=== PATIENT | female | born 1990 | race Hispanic/Latino ===

== ENCOUNTER 2018-05-05 22:58 | Inpatient (IN) | payer BC, MEDICAID ==
[2018-05-06] MEDS ORDERED: STADOL IV PRN (01:18)
[2018-05-06] MEDS: LACTATED RINGERS 1,000 ML IV SCH ×3 (02:16→05:24)
[2018-05-06 02:24] LABS: Hematocrit 39.9 % (30.3-42.9); Hemoglobin 13.7 gm/dl (10.1-14.3); Mean Corpuscular HGB Conc 34 % (30-34); Mean Corpuscular Volume 94 fl (79-97); Red Blood Count 4.23 M/mm3 (3.65-5.03); Red Cell Distribution Width 13.8 % (13.2-15.2)
[2018-05-06 02:26] LABS: Platelet Count 122 K/mm3 (140-440)
[2018-05-06] MEDS ORDERED: NARCAN 2 MG/2 ML IV PRN (03:00)
[2018-05-06] MEDS ORDERED: fentaNYL-BUPIV 2 MCG/ML-0.125% 200 MCG/100 ML BAG EPIDURAL SCH (03:00)
[2018-05-06] MEDS ORDERED: SUBLIMAZE ONE (03:06)
[2018-05-06] MEDS ORDERED: SENSORCAINE/DEXTR 0.75-8.25% INFILTRATI ONE (03:06)
[2018-05-06] MEDS ORDERED: PITOCin/NS 20 UNIT/1000ML DRIP 20,000 MILLIUNITS/1,000 ML BAG IV ONE (07:02)
--- NOTE | 2018-05-06 08:12 | History and Physical Report ---
History of Present Illness Date of examination: 05/06/18 Date of admission: 05/06/18 01:01 Chief complaint: My water broke History of present illness: Pt is a 27 year old who presents with SROM at 38.5 weeks and EDC 05/14/2018. Pt's course has been complicated by depression, but no other issues. She is GBS negative. Past History Past Medical History: no pertinent history Past Surgical History: no surgical history - Obstetrical History Expected Date of Delivery: 05/14/18 Actual Gestation: 38 Week(s) 6 Day(s) : 2 Medications and Allergies Allergies Allergy/AdvReac Type Severity Reaction Status Date / Time No Known Allergies Allergy Unverified 01/08/18 15:52 Home Medications Medication Instructions Recorded Confirmed Last Taken Type Pnv Plus Multivit Tab 65 mg PO DAILY 05/06/18 05/06/18 05/05/18 08:00 History Active Meds: Active Medications Butorphanol Tartrate (Stadol) 2 mg IV Q2H PRN PRN Reason: Labor Pain Last Admin: 05/06/18 02:05 Dose: 2 mg Documented by: Ephedrine Sulfate (Ephedrine Sulfate) 10 mg IV Q2M PRN PRN Reason: Hypotension Lactated Ringer's (Lactated Ringers) 1,000 mls @ 125 mls/hr IV DIRECT SARA Last Admin: 05/06/18 05:24 Dose: 125 mls/hr Documented by: Fentanyl/Bupivacaine/Sodium Chlor (Fentanyl-Bupiv 2 Mcg/Ml-0.125%) 200 mcg in 100 mls @ 12 mls/hr EPIDURAL TITR SARA; Protocol Last Admin: 05/06/18 03:52 Dose: 12 mls/hr Documented by: Naloxone HCl (Narcan 2 Mg/2 Ml) 0.2 mg IV Q5M PRN PRN Reason: Respiratory sedation - Vital Signs Vital signs: Vital Signs Pulse BP 71 111/63 01/08/18 15:48 01/08/18 15:48 Temp Pulse Resp BP Pulse Ox 97.5 F L 97 H 16 131/75 97 05/06/18 07:12 05/06/18 07:36 05/06/18 07:12 05/06/18 07:24 05/06/18 07:36 - Physical Exam Breasts: Cardiovascular: Regular rate, Normal S1, Normal S2 Lungs: Positive: Clear to auscultation, Normal air movement Abdomen: Positive: normal appearance, soft, normal bowel sounds. Negative: distention, tenderness Vulva: both: normal Vagina: Positive: normal moisture. Negative: discharge Cervix: Negative: lesion, discharge Uterus: Positive: normal size, normal contour Adnexa: both: normal Anus/Rectum: Positive: normal perianal skin, heme negative. Negative: rectal mass, hemorrhoids Extremities: Deep Tendon Reflex Grade: Normal +2 - Obstetrical Cervical Dilatation: 5 Cervical Effacement Percentage: 70 station: -3 Uterine Contraction Pattern: Regular Uterine Contraction Intensity: Moderate Results Result Diagrams: 05/06/18 02:00 Abnormal lab results 05/06/18 Range/Units 02:00 WBC 12.2 H (4.5-11.0) K/mm3 Plt Count 122 L (140-440) K/mm3 All other labs normal. Assessment and Plan IUP at 38.5 weeks with srom. Admit for labor. Augment if needed. Epidural when desired. Anticipate .
--- NOTE | 2018-05-06 08:13 | Procedure Note ---
OB Delivery Note - Delivery Date of Delivery: 05/06/18 Surgeon: FAYE MAGAÑA Estimated blood loss: 200cc - Vaginal Delivery presentation: vertex Delivery position: OP Intrapartum events: PROM->1hr before delivery Delivery induction: none Delivery monitor: external FHT, external uterine Route of delivery: Delivery placenta: spontaneous Delivery cord: nuchal cord, 3 umbilical vessels Episiotomy: none Delivery laceration: 2nd degree Delivery repair: vicryl - Infant A at 1 minute: 9 at 5 minutes: 9 Gender: Female (8 pounds 6 ounces 3808 grams)
[2018-05-06] MEDS ORDERED: METHERGINE IM ONE ×2 (08:45→10:07)
[2018-05-06] MEDS ORDERED: PITOCin/NS 20 UNIT/1000ML DRIP 20 UNITS/1,000 ML BAG IV SCH (09:00)
[2018-05-06] MEDS ORDERED: LANSINOH TP PRN (09:43)
[2018-05-06] MEDS ORDERED: PHENERGAN PO PRN (09:43)
[2018-05-06] MEDS ORDERED: TUCKS PAD TP PRN (09:43)
[2018-05-06] MEDS ORDERED: BENADRYL PO PRN (09:43)
[2018-05-06] MEDS ORDERED: ZOFRAN IV PRN (09:43)
[2018-05-06] MEDS ORDERED: TYLENOL PO PRN (09:43)
[2018-05-06] MEDS ORDERED: SODIUM CHLORIDE FLUSH SYRINGE 10 ML IV SCH (09:43)
[2018-05-06] MEDS ORDERED: PRENATAL VITAMIN PO SCH (10:00)
[2018-05-06] MEDS ORDERED: DULCOLAX PR PRN (11:00)
[2018-05-06] MEDS: IBUPROFEN PO SCH ×2 (12:40→18:12)
[2018-05-06] MEDS: NORCO 5/325 PO PRN ×2 (12:40→20:35)
[2018-05-06 20:57] LABS: Hematocrit 31.5 % (30.3-42.9); Hemoglobin 10.7 gm/dl (10.1-14.3)
[2018-05-06] MEDS ORDERED: MILK OF MAGNESIA PO PRN (22:00)
[2018-05-07] MEDS: IBUPROFEN PO SCH ×2 (02:07→09:50)
[2018-05-07] MEDS: COLACE PO SCH ×2 (02:07→09:47)
--- NOTE | 2018-05-07 12:01 | Progress Note ---
Assessment and Plan PPD 1 s/p . Doing well. Plan for discharge home on today. Subjective - Subjective Date of service: 05/07/18 Interval history: Pt is a 27 year old who presents with SROM at 38.5 weeks and EDC 05/14/2018. Pt's course has been complicated by depression, but no other issues. She is GBS negative. Patient reports: appetite normal, voiding normally, pain well controlled, ambulating normally [place]: doing well Objective - Vital Signs Latest vital signs: Vital Signs Temp Pulse Resp BP BP Pulse Ox 05/07/18 08:09 98.7 F 80 18 107/71 95 05/07/18 00:00 98.2 F 58 L 20 119/61 97 05/06/18 23:56 76 95 05/06/18 23:53 59 L 98 05/06/18 20:10 87 137/75 98 05/06/18 20:00 98.2 F 84 20 126/77 96 05/06/18 17:02 98.6 F 73 24 123/70 96 05/06/18 12:26 97.9 F 67 20 121/76 97 Intake and Output 05/06/18 05/07/18 05/07/18 22:59 06:59 14:59 Intake Total 120 240 360 Output Total 600 Balance -480 240 360 Intake: Oral 120 240 Intake, Free Water 360 Output: Urine 600 Void 600 Other: Total, Intake Amount 120 240 Total, Output Amount 600 # Voids Void 1 1 - Exam Breasts: Present: deferred Cardiovascular: Present: Regular rate, Normal S1, Normal S2 Lungs: Present: Clear to auscultation, Normal air movement Abdomen: Present: normal appearance, soft Uterus: Present: normal, firm, fundal height below umbilicus Extremities: Present: normal
--- NOTE | 2018-05-07 12:03 | Discharge Summary ---
Providers - Providers Date of Admission: 05/06/18 01:01 Date of discharge: 05/07/18 Attending physician: FAYE MAGAÑA Primary care physician: FAYE MAGAÑA Hospitalization Reason for admission: active labor, rupture of membranes Delivery: Episiotomy: none Laceration: 2nd degree Other procedures: none Discharge diagnosis: IUP at term delivered [place] baby: female Hospital course: unremarkable Condition at discharge: Good Disposition: DC-01 TO HOME OR SELFCARE Plan - Discharge Medications Prescriptions: Ibuprofen [Motrin 600 MG tab] 600 mg PO Q6H #40 tablet HYDROcodone/APAP 5-325 [[place] 5-325 mg TAB] 2 each PO Q6H PRN #20 tablet PRN Reason: Pain, Moderate (4-6) - Provider Discharge Summary Activity: routine, no sex for 6 weeks, no heavy lifting 4 weeks, no strenuous exercise Diet: routine Instructions: routine Additional instructions: [] Smoking cessation referral if applicable(refer to patient education folder for contact #) [] Refer to [facility] Booklet Call your doctor immediately for: * Fever > 100.5 * Heavy vaginal bleeding ( >1 pad per hour) * Severe persistent headache * Shortness of breath * Reddened, hot, painful area to leg or breast * Drainage or odor from incision. * Keep incision clean and dry at all times and follow doctor's instructions regarding bathing/showering - Follow up plan Follow up: FAYE MAGAÑA MD [Primary Care Provider] - 6 Weeks
[2018-05-07 13:47] VITALS: BP 108/68
== END 2018-05-07 15:30 | disposition home or self-care (01) | DRG 807 ==
LOC: TRG 22:58 → LD 05-06 01:01 → OB 05-06 09:26
PROVIDERS: ADMIT Obstetrics & Gynecology; ATTEND Obstetrics & Gynecology
PROC: 10E0XZZ Delivery of Products of Conception, External Approach (ICD-10-PCS; principal; 2018-05-06)
PROC: 0KQM0ZZ Repair Perineum Muscle, Open Approach (ICD-10-PCS; 2018-05-06)
DX: O69.81X0 Labor and delivery complicated by cord around neck, without compression, not applicable or unspecified (principal); Z37.0 Single live birth; O70.1 Second degree perineal laceration during delivery; O99.344 Other mental disorders complicating childbirth; F32.9 Major depressive disorder, single episode, unspecified; Z3A.38 38 weeks gestation of pregnancy
CPT/HCPCS: 36415; 85014; 85018; 85027; 86592; 86850; 86900; 86901; G0378; J0595; J2210; J2590; J3010; J7120